=== PATIENT | female | born 1955 | race African-American/Black ===

== ENCOUNTER 2017-11-29 10:58 | Emergency (ER) | payer MEDICARE, OTHER ==
[2017-11-29 11:04] VITALS: BP 162/95
--- NOTE | 2017-11-29 11:19 | ER Document Report ---
HPI - HPI Patient complains to provider of: rash on arm Onset: Other - 2 weeks Onset/Duration: Gradual Quality of pain: Burning Severity: Moderate Pain Level: 4 Context: Patient has had rash on left upper arm for 2 weeks. Has been applying Blue Star ointment which causes it to burn. Area has gotten larger. Associated Symptoms: None Exacerbated by: Denies Relieved by: Denies Similar symptoms previously: No Recently seen / treated by doctor: No - ROS ROS below otherwise negative: Yes Systems Reviewed and Negative: Yes All other systems reviewed and negative - CONSTITUTIONAL Constitutional: DENIES: Fever - EENT EENT: DENIES: Sore Throat - NEURO Neurology: DENIES: Headache - CARDIOVASCULAR Cardiovascular: DENIES: Chest pain - RESPIRATORY Respiratory: DENIES: Trouble Breathing - DERM Skin Problems: Rash - Left upper arm Past Medical History - General Information source: Patient - Social History Smoking Status: Never Smoker Frequency of alcohol use: Occasional Drug Abuse: None Lives with: Family Family History: Reviewed & Not Pertinent - Past Medical History Cardiac Medical History: Reports: Hx Hypercholesterolemia, Hx Hypertension Endocrine Medical History: Reports: Hx Diabetes Mellitus Type 2 Past Surgical History: Reports: Hx Appendectomy, Hx Orthopedic Surgery, Hx Tubal Ligation - Immunizations Immunizations up to date: Yes Vertical Provider Document - CONSTITUTIONAL Agree With Documented VS: Yes Exam Limitations: No Limitations General Appearance: WD/WN, No Apparent Distress - INFECTION CONTROL TRAVEL OUTSIDE OF THE [place] IN LAST 30 DAYS: No - HEENT HEENT: Atraumatic - RESPIRATORY Respiratory: Breath Sounds Normal, No Respiratory Distress - CARDIOVASCULAR Cardiovascular: Regular Rate, Regular Rhythm - MUSCULOSKELETAL/EXTREMETIES Musculoskeletal/Extremeties: MAEW - NEURO Level of Consciousness: Awake, Alert, Appropriate - DERM Integumentary: Rash - 1 inch circular area with raised borders and cleared center noted to left upper arm. Course - Vital Signs Vital signs: Temp Pulse Resp BP Pulse Ox 98.5 F 81 16 162/95 H 98 11/29/17 11:03 11/29/17 11:03 11/29/17 11:03 11/29/17 11:03 11/29/17 11:03 Discharge - Discharge Clinical Impression: Ringworm Condition: Good Disposition: HOME, SELF-CARE Additional Instructions: Clotrimazole as prescribed twice daily May take 6-8 weeks to totally clear, continue medication 1 week after ringworm is no longer present Follow up with your doctor for recheck Return as needed Prescriptions: Clotrimazole [Antifungal] 30 gm TP BID #30 cream..g.
== END 2017-11-29 11:35 | disposition home or self-care (01) ==
LOC: ER 10:58
DX: B35.9 Dermatophytosis, unspecified (principal); R21 Rash and other nonspecific skin eruption; E78.00 Pure hypercholesterolemia, unspecified; I10 Essential (primary) hypertension; E11.9 Type 2 diabetes mellitus without complications; Z98.51 Tubal ligation status
CPT/HCPCS: 99282